=== PATIENT | female | born 1950 | race Caucasian/White ===

== ENCOUNTER 2019-07-05 13:21 | Observation (INO) | payer BC, MEDICARE ==
[~2019-07-05] VITALS: Ht 142.2 cm; Wt 41.5 kg
[2019-07-05] MEDS ORDERED: IV NORMAL SALINE 1000ML BAG 1,000 ML IV SCH (14:39)
[2019-07-05 14:58] LABS: BASO # 0.1 x10^3/uL (0.0-0.2); BASO % 1 % (0-3); EOS # 0.4 x10^3/uL (0.0-0.7); EOS % 6 % (0-3); HEMATOCRIT 39.8 % (36.0-47.0); HEMOGLOBIN 13.1 g/dL (12.0-15.5); LYMPH # 0.8 x10^3/uL (1.0-4.8); LYMPH % 12 % (24-48); MEAN CORPUSCULAR HEMOGLOBIN 29 pg (25-35); MEAN CORPUSCULAR HGB CONC 33 g/dL (31-37); MEAN CORPUSCULAR VOLUME 89 fL (79-100); MONO # 0.7 x10^3/uL (0.0-1.1); MONO % 11 % (0-9); NEUT # 4.5 x10^3/uL (1.8-7.7); NEUT % 70 % (31-73); PLATELET COUNT 423 x10^3/uL (140-400); RED BLOOD COUNT 4.48 x10^6/uL (3.50-5.40); RED CELL DISTRIBUTION WIDTH 14.9 % (11.5-14.5); WHITE BLOOD COUNT 6.4 x10^3/uL (4.0-11.0)
[2019-07-05 15:00] LABS: CALCIUM 9.1 mg/dL (8.5-10.1); CREATININE 1.1 mg/dL (0.6-1.0); GFR 49.5; POTASSIUM 4.5 mmol/L (3.5-5.1)
[2019-07-05 15:07] LABS: ALBUMIN 3.9 g/dL (3.4-5.0); ALBUMIN/GLOBULIN RATIO 1.3 (1.0-1.7); PROTHROMBIN TIME PATIENT 12.3 SEC (11.7-14.0); TOTAL BILIRUBIN 0.2 mg/dL (0.2-1.0); TOTAL PROTEIN 6.9 g/dL (6.4-8.2)
--- NOTE | 2019-07-05 15:10 | RAD ---
Single view chest dated 07/05/2019. Comparison made 02/11/2018. CLINICAL INDICATION: Confusion. Shortness of breath and weakness. FINDINGS: Single upright portable exam performed. Heart and mediastinal contours within normal limits. Lungs are hyperinflated but otherwise clear. No consolidation or pleural effusion. No pneumothorax. Nodular density within the anterior aspect of the right upper lobe is unchanged, likely granuloma. IMPRESSION: 1. No acute radiographic abnormality. Electronically signed by: Armin Ramos MD (07/05/2019 3:07 PM) [facility]
[2019-07-05] MEDS ORDERED: IOHEXOL 300 MG/ML 100ML VIAL. IV ONE (15:30)
[2019-07-05] MEDS ORDERED: CONTRAST GIVEN. MC PRN (15:30)
[2019-07-05 15:36] LABS: BILIRUBIN,URINE NEGATIVE (NEG); CLARITY,URINE CLEAR; COLOR,URINE YELLOW; NITRITE,URINE NEGATIVE (NEG); PH,URINE 7.5; PROTEIN,URINE 30 mg/dL (NEG-TRACE); UROBILINOGEN,URINE 0.2 mg/dL (0.2 mg/dL)
[2019-07-05 15:43] LABS: BARBITURATES NEG (NEG); BENZODIAZEPINES NEG (NEG); CANNABINOIDS POS (NEG); COCAINE NEG (NEG); METHADONE NEG (NEG); OPIATES NEG (NEG); PHENCYCLIDINE NEG (NEG)
[2019-07-05 15:45] LABS: AMPHETAMINE/METHAMPHETAMINE NEG (NEG)
[2019-07-05 15:49] LABS: HYALINE CASTS, URINE MANY /HPF
[2019-07-05 15:50] LABS: AMORPHOUS SEDIMENT,UR PRESENT /HPF; BACTERIA,URINE 0 /HPF (0-FEW); SQUAMOUS EPITHELIAL CELL,UR OCC /LPF
--- NOTE | 2019-07-05 15:53 | RAD ---
CT head without contrast dated 07/05/2019. No comparison available. CLINICAL INDICATION: Confusion. TECHNIQUE: Contiguous axial imaging the head was performed from skull base to vertex. No contrast administered. One or more of the following individualized dose reduction techniques were utilized for this examination: 1. Automated exposure control 2. Adjustment of the mA and/or kV according to patient size 3. Use of iterative reconstruction technique. FINDINGS: Ventricles and sulci are mildly prominent for age. No midline shift or mass effect. Brain parenchyma is of normal attenuation. No hemorrhage or extra-axial collection. Posterior fossa and brainstem unremarkable. Visualized paranasal sinuses and mastoid air cells are grossly clear. There is a tiny air-fluid level in left maxillary sinus. No apparent calvarial abnormality. IMPRESSION: 1. No evidence of acute intracranial abnormality. 2. Mild sinus disease. Electronically signed by: Armin Ramos MD (07/05/2019 3:50 PM) [facility]
--- NOTE | 2019-07-05 15:57 | RAD ---
CT abdomen pelvis with contrast dated 07/05/2019. No comparison available. CLINICAL INDICATION: Confusion and abdominal pain. TECHNIQUE: Contiguous axial imaging the abdomen and pelvis performed after the administration of 60 cc Omnipaque 300. One or more of the following individualized dose reduction techniques were utilized for this examination: 1. Automated exposure control 2. Adjustment of the mA and/or kV according to patient size 3. Use of iterative reconstruction technique. FINDINGS: Limited images of lung bases are clear. There is minimal linear scar or atelectasis in the left lower lobe and lingula. Heart size within normal limits. No pleural or pericardial effusion. Liver, spleen, pancreas, adrenal glands, gallbladder and kidneys are unremarkable. No hydronephrosis. Well-circumscribed low-density focus at the midpole left kidney, likely cyst. There are couple of small hypodensities spleen measure 7 mm in size each, nonspecific. Unopacified GI tract normal in caliber and contour. No focal bowel wall thickening. No inflammatory stranding in the mesentery. No ascites or lymphadenopathy. There are atherosclerotic calcifications of the abdominal aorta without evidence of aneurysm. The appendix is partially visualized and within normal limits in caliber. Images of pelvis show mildly distended urinary bladder. There is a hyperdense nodule of the uterus, consistent with fibroid measuring about 2.1 cm. No free fluid or pelvic lymphadenopathy. Bone windows show no acute findings. Multilevel spondylosis. IMPRESSION: 1. No acute abnormality of abdomen or pelvis. 2. Fibroid uterus. 3. There are couple of small hypodensities within the spleen, nonspecific. Electronically signed by: Armin Ramos MD (07/05/2019 3:54 PM) [facility]
[2019-07-05 16:10] LABS: BASE EXCESS COOX -1 mmol/L (-3-3); HCO3 COOX 24 mmol/L (21-28); METHEMOGLOBIN 0.2 % (0.0-1.9); OXYHEMOGLOBIN 88.1 %; PCO2 COOX 42 mmHg (35-46); PO2 COOX 57 mmHg (65-108); SAT O2 COOX 89 % (92-99)
--- NOTE | 2019-07-05 16:37 | PHYS DOC ---
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 Apparently she began shaking very badly more than she usually does and cut very weak, dizzy and lightheaded. Upon going into the room patient states that she is feeling a lot better and is feeling fine states that she is too weak to get up and walk. Patient's daughter states she is just not acting right and she is seeing a lot of of [id number] things such as "they can't see me, they can't hear me, and I'm ." Patient denies any pain. Review of Systems Review of Systems Constitutional: Denies fever or chills [] Eyes: Denies change in visual acuity, redness, or eye pain [] HENT: Denies nasal congestion or sore throat [] Respiratory: Denies cough or shortness of breath [] Cardiovascular: No additional information not addressed in HPI [] GI: Denies abdominal pain, nausea, vomiting, bloody stools or diarrhea [] : Denies dysuria or hematuria [] Musculoskeletal: Denies back pain or joint pain [] Integument: Denies rash or skin lesions [] Neurologic: Denies headache, focal weakness or sensory changes [] Endocrine: Denies polyuria or polydipsia [] All other systems were reviewed and found to be within normal limits, except as documented in this note. Current Medications Current Medications Current Medications Medications (Trade) Dose Ordered Sig/Aly Start Time Stop Time Status Last Admin Dose Admin Ciprofloxacin/ Dextrose 200 ml @ 200 mls/hr 1X ONCE 07/05/19 16:45 07/05/19 17:44 Info (CONTRAST GIVEN -- Rx MONITORING) 1 each PRN DAILY PRN 07/05/19 15:30 07/07/19 15:29 Iohexol (Omnipaque 300 Mg/ml) 60 ml 1X ONCE 07/05/19 15:30 07/05/19 15:31 DC 07/05/19 15:37 60 ML Sodium Chloride 1,000 ml @ 1,000 mls/hr Q1H 07/05/19 14:39 07/05/19 15:38 DC 07/05/19 15:17 1,000 MLS/HR Allergies Allergies Allergies Coded Allergies Type Severity Reaction Last Updated Verified Penicillins Allergy Intermediate Unknown 07/05/19 Yes Physical Exam Physical Exam Constitutional: Well developed, well nourished, no acute distress, non-toxic appearance. [] HENT: Normocephalic, atraumatic, bilateral external ears normal, oropharynx moist, no oral exudates, nose normal. [] Eyes: PERRLA, EOMI, conjunctiva normal, no discharge. [] Neck: Normal range of motion, no tenderness, supple, no stridor. [] Cardiovascular:Heart rate regular rhythm, no murmur [] Lungs & Thorax: Bilateral breath sounds clear to auscultation [] Abdomen: Bowel sounds normal, soft, no tenderness, no masses, no pulsatile masses. [] Skin: Warm, dry, no erythema, no rash. [] Back: No tenderness, no CVA tenderness. [] Extremities: No tenderness, no cyanosis, no clubbing, ROM intact, no edema. [] Neurologic: Alert and oriented X 3, normal motor function, normal sensory function, no focal deficits noted. [] Psychologic: Affect normal, judgement normal, mood normal. [] Current Patient Data Vital Signs Vital Signs Date Time Temp Pulse Resp B/P (MAP) Pulse Ox O2 Delivery O2 Flow Rate FiO2 07/05/19 15:41 96 16 98 07/05/19 13:25 97.7 143/65 (91) Room Air 97.7 Lab Values Laboratory Tests Test 07/05/19 13:40 07/05/19 13:50 07/05/19 14:39 07/05/19 15:24 Glucose (Fingerstick) 164 mg/dL (70-99) H White Blood Count 6.4 x10^3/uL (4.0-11.0) Red Blood Count 4.48 x10^6/uL (3.50-5.40) Hemoglobin 13.1 g/dL (12.0-15.5) Hematocrit 39.8 % (36.0-47.0) Mean Corpuscular Volume 89 fL (79-100) Mean Corpuscular Hemoglobin 29 pg (25-35) Mean Corpuscular Hemoglobin Concent 33 g/dL (31-37) Red Cell Distribution Width 14.9 % (11.5-14.5) H Platelet Count 423 x10^3/uL (140-400) H Neutrophils (%) (Auto) 70 % (31-73) Lymphocytes (%) (Auto) 12 % (24-48) L Monocytes (%) (Auto) 11 % (0-9) H Eosinophils (%) (Auto) 6 % (0-3) H Basophils (%) (Auto) 1 % (0-3) Neutrophils # (Auto) 4.5 x10^3/uL (1.8-7.7) Lymphocytes # (Auto) 0.8 x10^3/uL (1.0-4.8) L Monocytes # (Auto) 0.7 x10^3/uL (0.0-1.1) Eosinophils # (Auto) 0.4 x10^3/uL (0.0-0.7) Basophils # (Auto) 0.1 x10^3/uL (0.0-0.2) Prothrombin Time 12.3 SEC (11.7-14.0) Prothrombin Time INR 0.9 (0.8-1.1) Sodium Level 141 mmol/L (136-145) Potassium Level 4.5 mmol/L (3.5-5.1) Chloride Level 101 mmol/L (98-107) Carbon Dioxide Level 29 mmol/L (21-32) Anion Gap 11 (6-14) Blood Urea Nitrogen 19 mg/dL (7-20) Creatinine 1.1 mg/dL (0.6-1.0) H Estimated GFR (Cockcroft-Gault) 49.5 BUN/Creatinine Ratio 17 (6-20) Glucose Level 165 mg/dL (70-99) H Calcium Level 9.1 mg/dL (8.5-10.1) Total Bilirubin 0.2 mg/dL (0.2-1.0) Aspartate Amino Transferase (AST) 28 U/L (15-37) Alanine Aminotransferase (ALT) 30 U/L (14-59) Alkaline Phosphatase 137 U/L (46-116) H Troponin I Quantitative < 0.017 ng/mL (0.000-0.055) Total Protein 6.9 g/dL (6.4-8.2) Albumin 3.9 g/dL (3.4-5.0) Albumin/Globulin Ratio 1.3 (1.0-1.7) Lipase 228 U/L (73-393) Thyroid Stimulating Hormone (TSH) 1.681 uIU/mL (0.358-3.74) Ethyl Alcohol Level < 10 mg/dL (0-10) O2 Saturation 89 % (92-99) L Arterial Blood pH 7.37 (7.35-7.45) Arterial Blood pCO2 at Patient Temp 42 mmHg (35-46) Arterial Blood pO2 at Patient Temp 57 mmHg (65-108) L Arterial Blood HCO3 24 mmol/L (21-28) Arterial Blood Base Excess -1 mmol/L (-3-3) Oxyhemoglobin 88.1 % Methemoglobin 0.2 % (0.0-1.9) Carbon Monoxide, Quantitative 0.3 % (0.0-1.9) FiO2 21 Urine Opiates Screen Neg (NEG) Urine Methadone Screen Neg (NEG) Urine Barbiturates Neg (NEG) Urine Phencyclidine Screen Neg (NEG) Urine Amphetamine/Methamphetamine Neg (NEG) Urine Benzodiazepines Screen Neg (NEG) Urine Cocaine Screen Neg (NEG) Urine Cannabinoids Screen Pos (NEG) Urine Ethyl Alcohol Neg (NEG) Urine Collection Type Unknown Urine Color Yellow Urine Clarity Clear Urine pH 7.5 Urine Specific [place] 1.015 Urine Protein 30 mg/dL (NEG-TRACE) Urine Glucose (UA) Negative mg/dL (NEG) Urine Ketones (Stick) Negative mg/dL (NEG) Urine Blood Negative (NEG) Urine Nitrite Negative (NEG) Urine Bilirubin Negative (NEG) Urine Urobilinogen Dipstick 0.2 mg/dL (0.2 mg/dL) Urine Leukocyte Esterase Trace (NEG) Urine RBC 1-2 /HPF (0-2) Urine WBC 11-20 /HPF (0-4) Urine Squamous Epithelial Cells Occ /LPF Urine Transitional Epithelial Cells Few /LPF Urine Amorphous Sediment Present /HPF Urine Bacteria 0 /HPF (0-FEW) Urine Hyaline Casts Many /HPF Urine Mucus Mod /LPF Test 07/05/19 15:47 Lactic Acid Level 1.8 mmol/L (0.4-2.0) Ammonia < 10 mcmol/L (11-34) L Laboratory Tests 07/05/19 13:50 Laboratory Tests 07/05/19 13:50 EKG EKG SINUS RYTHM WITH INCOMPLETE RIGHT BBB AND NO STEMI[] Interpretation Time: [address] Herrera Radiology/Procedures Radiology/Procedures [] Impressions: [facility] [address] [place] [address] IMAGING REPORT Signed PATIENT: RAY AMAYA ACCOUNT: [id number] : 1950 LOCATION: ER AGE: 69 SEX: F EXAM STATUS: PRE ER ORD. PHYSICIAN: JULIANO MORTENSEN APRN REASON: confusion, soa, WEAKNESS PROCEDURE: PORTABLE CHEST 1V Single view chest dated 07/05/2019. Comparison made 02/11/2018. CLINICAL INDICATION: Confusion. Shortness of breath and weakness. FINDINGS: Single upright portable exam performed. Heart and mediastinal contours within normal limits. Lungs are hyperinflated but otherwise clear. No consolidation or pleural effusion. No pneumothorax. Nodular density within the anterior aspect of the right upper lobe is unchanged, likely granuloma. IMPRESSION: 1. No acute radiographic abnormality. Electronically signed by: Armin Ramos MD (07/05/2019 3:07 PM) [facility] DICTATED and SIGNED BY: ARMIN RAMOS MD DATE: 07/05/19 1507 [facility] [address] [place], [place] [id number] IMAGING REPORT Signed PATIENT: RAY AMAYA ACCOUNT: [id number] : 1950 LOCATION: ER AGE: 69 SEX: F EXAM STATUS: REG ER ORD. PHYSICIAN: JULIANO MORTENSEN APRN REASON: confusion PROCEDURE: CT HEAD WO CONTRAST CT head without contrast dated 07/05/2019. No comparison available. CLINICAL INDICATION: Confusion. TECHNIQUE: Contiguous axial imaging the head was performed from skull base to vertex. No contrast administered. One or more of the following individualized dose reduction techniques were utilized for this examination: 1. Automated exposure control 2. Adjustment of the mA and/or kV according to patient size 3. Use of iterative reconstruction technique. FINDINGS: Ventricles and sulci are mildly prominent for age. No midline shift or mass effect. Brain parenchyma is of normal attenuation. No hemorrhage or extra-axial collection. Posterior fossa and brainstem unremarkable. Visualized paranasal sinuses and mastoid air cells are grossly clear. There is a tiny air-fluid level in left maxillary sinus. No apparent calvarial abnormality. IMPRESSION: 1. No evidence of acute intracranial abnormality. 2. Mild sinus disease. Electronically signed by: Armin Ramos MD (07/05/2019 3:50 PM) [facility] DICTATED and SIGNED BY: ARMIN RAMOS MD DATE: 07/05/19 1550 [facility] [address] [place] [address] IMAGING REPORT Signed PATIENT: RAY AMAYA ACCOUNT: [id number] : 1950 LOCATION: ER AGE: 69 SEX: F EXAM STATUS: REG ER ORD. PHYSICIAN: JULIANO MORTENSEN APRN REASON: confusion, ABDOMINAL PAIN PROCEDURE: CT ABD PELV W/ IV CONTRST ONLY CT abdomen pelvis with contrast dated 07/05/2019. No comparison available. CLINICAL INDICATION: Confusion and abdominal pain. TECHNIQUE: Contiguous axial imaging the abdomen and pelvis performed after the administration of 60 cc Omnipaque 300. One or more of the following individualized dose reduction techniques were utilized for this examination: 1. Automated exposure control 2. Adjustment of the mA and/or kV according to patient size 3. Use of iterative reconstruction technique. FINDINGS: Limited images of lung bases are clear. There is minimal linear scar or atelectasis in the left lower lobe and lingula. Heart size within normal limits. No pleural or pericardial effusion. Liver, spleen, pancreas, adrenal glands, gallbladder and kidneys are unremarkable. No hydronephrosis. Well-circumscribed low-density focus at the midpole left kidney, likely cyst. There are couple of small hypodensities spleen measure 7 mm in size each, nonspecific. Unopacified GI tract normal in caliber and contour. No focal bowel wall thickening. No inflammatory stranding in the mesentery. No ascites or lymphadenopathy. There are atherosclerotic calcifications of the abdominal aorta without evidence of aneurysm. The appendix is partially visualized and within normal limits in caliber. Images of pelvis show mildly distended urinary bladder. There is a hyperdense nodule of the uterus, consistent with fibroid measuring about 2.1 cm. No free fluid or pelvic lymphadenopathy. Bone windows show no acute findings. Multilevel spondylosis. IMPRESSION: 1. No acute abnormality of abdomen or pelvis. 2. Fibroid uterus. 3. There are couple of small hypodensities within the spleen, nonspecific. Electronically signed by: Armin Ramos MD (07/05/2019 3:54 PM) [facility] DICTATED and SIGNED BY: ARMIN RAMOS MD DATE: 07/05/19 1554 Course & Med Decision Making Course & Med Decision Making Is a very poor historian seems to be answering my questions appropriately but daughter will that the patient's nursing on following up falling and I'm leaning. The nurse states that she was sitting straight up and she was not falling nor was she leaning. NIH scale is negative. She is alert and oriented 4. Answers all my questions appropriately and follows all commands appropriately. Nurse states that she gave the patient 1 mL of water to drink and patient began coughing. Patient states for the last month or 2 she has been having that issue especially getting her pills down. She states that she has told her GI doctor about this in they found polyps in her esophagus in her colon. Daughter states that she thought they only did a colonoscopy and not an endoscopy. It is unclear at this time which was done. Patient's primary care is at [facility]. Patient and daughter also reports the patient went from 140 pounds to 90 pounds in 2 months. She states that she does not think her mother's been eating enough. Patient only had a cookie to eat today. Patient is a smoker, has emphysema, asthma, hypothyroidism, states drinks a beer every night, marijuana use, high cholesterol, hypertension, GERD. Lungs are clear to auscultation all lobes. Her vital signs are within normal limits. EKG shows sinus rhythm and incomplete right BBB. Patient speaks in full clear sentences. Skin pink warm and dry. Abdomen is soft and nontender. Patient denies fever, cough, shortness of air, chest pain, headache, dizziness at this time, numbness or tingling, visual changes. She denies falling or hitting her head recently. I have spoken to Dr Gill for admission. Catrachita Disclaimer Dragon Disclaimer This electronic medical record was generated, in whole or in part, using a voice recognition dictation system. Departure Departure Impression: Primary Impression: AMS (altered mental status) Additional Impression: Dysphagia Disposition: 09 ADMITTED INPATIENT Admitting Physician: REE Condition: STABLE Referrals: SHAI MAURICE (PCP) Problem Qualifiers Primary Impression: AMS (altered mental status) Altered mental status type: unspecified Qualified Codes: R41.82 - Altered mental status, unspecified Additional Impression: Dysphagia Dysphagia type: unspecified Qualified Codes: R13.10 - Dysphagia, unspecified JULIANO MORTENSEN LEATHER TANNER Jul 05, 2019 16:37
[2019-07-05] MEDS ORDERED: CIPROFLOXACIN 400MG PREMIX 200 ML IV ONE (16:45)
[2019-07-05] MEDS ORDERED: LORazepam 0.5 MG TABLET PO PRN (17:00)
[2019-07-05] MEDS ORDERED: IPRATRPIUM/ALBUTEROL 0.5/2.5MG 3 ML NEBU. NEB SCH (17:00)
[2019-07-05] MEDS ORDERED: DOCUSATE SODIUM 100 MG CAPSULE. PO PRN (17:00)
[2019-07-05] MEDS ORDERED: ONDANSETRON PF 4 MG/2 ML VIAL. IV PRN (17:00)
[2019-07-05] MEDS ORDERED: ALBUTEROL SULFATE 2.5 MG/3 ML NEBU. NEB PRN (17:00)
[2019-07-05] MEDS ORDERED: ZOLPIDEM 5 MG TABLET. PO PRN (17:00)
[2019-07-05] MEDS ORDERED: ACETAMINOPHEN 325 MG TABLET. PO PRN (17:00)
[2019-07-05] MEDS ORDERED: guaiFENesin ORAL 200 MG/10 ML LIQUID. PO PRN (17:00)
[2019-07-05 19:00] VITALS: BP 120/70
[2019-07-05] MEDS: IV NORMAL SALINE 1000ML BAG 1,000 ML IV SCH (20:11)
[2019-07-05] MEDS ORDERED: AMLO5TAB10 PO (20:32)
[2019-07-05] MEDS ORDERED: ALEN70TA6 PO (20:32)
[2019-07-05] MEDS ORDERED: PANT40TA77 PO (20:32)
[2019-07-05] MEDS ORDERED: IPRA4AER IH (20:32)
[2019-07-05] MEDS ORDERED: ATOR40TA59 PO (20:32)
[2019-07-05] MEDS ORDERED: allergy PO (20:32)
[2019-07-05] MEDS ORDERED: BUPR300T92 PO (20:32)
[2019-07-05] MEDS ORDERED: LEVO75TA5 PO (20:32)
[2019-07-05] MEDS ORDERED: ASPI-630 PO (20:32)
[2019-07-05] MEDS: IPRATRPIUM/ALBUTEROL 0.5/2.5MG 3 ML NEBU. NEB SCH (20:55)
[2019-07-05] MEDS ORDERED: ENOXAPARIN 40 MG/0.4 ML SYRINGE. SQ SCH (21:00)
[2019-07-05 23:00] VITALS: BP 114/52
--- NOTE | 2019-07-05 23:07 | PDOC1 ---
History and Physical Date of Admission Date of Admission 07/05/2019 Identification/Chief Complaint Chief Complaint I was talking crazy Source Source: Chart review, Patient History of Present Illness History of Present Illness Patient is a 69 year old female with multiple comorbidities that include hypertension hypothyroidism and dyslipidemia GERD and COPD. 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 She was brought to the emergency department via ambulance for further evaluation and treatment. The patient did not percent neurological deficits and age score was 0 she did not percent slurred speech no facial drooping no hemiparesis no hemiplegia was reported either. The patient denies any recent changes to her medications. She did acknowledge the fact that she was talking quite strangely at her workplace does not give history of seizure-like activity or aura-type of symptoms she denies headaches no blurred vision. She has not started [id number] medications either no recent sick contacts no flulike symptoms no neck stiffness no fever chills diaphoresis was reported either. She quit smoking apparently 15 years ago after a [id number] history of smoking. Family reports a significant drop weight over the last few months. The patient certainly does look him she aided and when asked about her oral intake she reports that sometimes just drinking 1 cup of coffee a day. Is being admitted f or further evaluation and treatment. There was a report also by the ER physician and confirmed by the patient that she has had trouble swallowing as a reason she has been having less oral intake. No black tarry stools nor hematochezia has been reported no abdominal pain no lymph nodes were noted. Plan of care explained in detail all concerns address to the best of my abilities Past Medical History Cardiovascular: HTN, Hyperlipidemia Pulmonary: COPD Endocrine: Hypothyroidism Current Problem List Problem List Problems Medical Problems: (1) AMS (altered mental status) Status: Acute (2) Dysphagia Status: Acute Current Medications Current Medications Current Medications Medications (Trade) Dose Ordered Sig/Aly Start Time Stop Time Status Last Admin Dose Admin Acetaminophen (Tylenol) 650 mg PRN Q4HRS PRN 07/05/19 17:00 Albuterol Sulfate (Ventolin Neb Soln) 2.5 mg PRN Q4HRS PRN 07/05/19 17:00 Albuterol/ Ipratropium (Duoneb) 3 ml RTQID 07/05/19 20:00 07/05/19 20:55 3 ML Ciprofloxacin/ Dextrose 200 ml @ 200 mls/hr 1X ONCE 07/05/19 16:45 07/05/19 17:44 DC 07/05/19 17:27 200 MLS/HR Docusate Sodium (Colace) 100 mg PRN BID PRN 07/05/19 17:00 Enoxaparin Sodium (Lovenox 40mg Syringe) 40 mg QHS 07/05/19 21:00 Guaifenesin (Robitussin) 200 mg PRN Q4HRS PRN 07/05/19 17:00 Info (CONTRAST GIVEN -- Rx MONITORING) 1 each PRN DAILY PRN 07/05/19 15:30 07/07/19 15:29 Iohexol (Omnipaque 300 Mg/ml) 60 ml 1X ONCE 07/05/19 15:30 07/05/19 15:31 DC 07/05/19 15:37 60 ML Levothyroxine Sodium (Synthroid) 75 mcg DAILY06 07/06/19 06:00 Lorazepam (Ativan) 0.5 mg PRN Q4HRS PRN 07/05/19 17:00 Ondansetron HCl (Zofran) 4 mg PRN Q4HRS PRN 07/05/19 17:00 Sodium Chloride 1,000 ml @ 100 mls/hr Q10H 07/05/19 16:55 07/05/19 20:11 100 MLS/HR Zolpidem Tartrate (Ambien) 5 mg PRN QHS PRN 07/05/19 17:00 Allergies Allergies Allergies Coded Allergies Type Severity Reaction Last Updated Verified Penicillins Allergy Intermediate Unknown 07/05/19 Yes ROS Review of System CONSTITUTIONAL: No fever or chills EYES: No recent changes SKIN: No rash or itching CARDIOVASCULAR: No chest pain, syncope, palpitations, or edema RESPIRATORY: No SOB or cough GASTROINTESTINAL: No nausea, vomiting or abdominal pain NEUROLOGICAL: No headaches or weakness ENDOCRINE: No cold or heat intolerance GENITOURINARY: No urgency or frequency of urination MUSCULOSKELETAL: No back pain or joint pain LYMPHATICS: No enlarged lymph nodes PSYCHIATRIC: No anxiety or depression Physical Exam Physical Exam Gen.: Cachectic in no apparent distress Head: Normal shape atraumatic Eyes: Pupils equal reactive to light and accommodation, normal conjunctivae and lids Ears: Normal shape Nose: Normal shape no trauma Mouth: No exudates of the back of throat no thrush no lesions Neck: Supple no JVD no carotid bruit or lymphadenopathy no thyromegaly Chest: Lungs clear to auscultation with good inspiratory effort no crackles rales or rhonchi Cardiovascular: S1-S2 regular rhythm no murmurs gallops or rubs Abdomen: Bowel sounds present soft nontender no hepatosplenomegaly appreciated sign Extremities: No clubbing no cyanosis no edema peripheral pulses palpated bilaterally Neurological: Alert awake oriented in person time place and situation, cranial nerves II through XII intact, no motor or sensory deficits appreciated Psych: Appropriate mood, cooperative Vitals Vitals Vital Signs Date Time Temp Pulse Resp B/P (MAP) Pulse Ox O2 Delivery O2 Flow Rate FiO2 07/05/19 20:55 98 Nasal Cannula 2.0 07/05/19 19:00 98.0 96 18 120/70 (87) 98.0 Labs Labs Laboratory Tests Test 07/05/19 13:40 07/05/19 13:50 07/05/19 14:39 07/05/19 15:24 Glucose (Fingerstick) 164 mg/dL (70-99) White Blood Count 6.4 x10^3/uL (4.0-11.0) Red Blood Count 4.48 x10^6/uL (3.50-5.40) Hemoglobin 13.1 g/dL (12.0-15.5) Hematocrit 39.8 % (36.0-47.0) Mean Corpuscular Volume 89 fL (79-100) Mean Corpuscular Hemoglobin 29 pg (25-35) Mean Corpuscular Hemoglobin Concent 33 g/dL (31-37) Red Cell Distribution Width 14.9 % (11.5-14.5) Platelet Count 423 x10^3/uL (140-400) Neutrophils (%) (Auto) 70 % (31-73) Lymphocytes (%) (Auto) 12 % (24-48) Monocytes (%) (Auto) 11 % (0-9) Eosinophils (%) (Auto) 6 % (0-3) Basophils (%) (Auto) 1 % (0-3) Neutrophils # (Auto) 4.5 x10^3/uL (1.8-7.7) Lymphocytes # (Auto) 0.8 x10^3/uL (1.0-4.8) Monocytes # (Auto) 0.7 x10^3/uL (0.0-1.1) Eosinophils # (Auto) 0.4 x10^3/uL (0.0-0.7) Basophils # (Auto) 0.1 x10^3/uL (0.0-0.2) Prothrombin Time 12.3 SEC (11.7-14.0) Prothromb Time International Ratio 0.9 (0.8-1.1) Sodium Level 141 mmol/L (136-145) Potassium Level 4.5 mmol/L (3.5-5.1) Chloride Level 101 mmol/L (98-107) Carbon Dioxide Level 29 mmol/L (21-32) Anion Gap 11 (6-14) Blood Urea Nitrogen 19 mg/dL (7-20) Creatinine 1.1 mg/dL (0.6-1.0) Estimated GFR (Cockcroft-Gault) 49.5 BUN/Creatinine Ratio 17 (6-20) Glucose Level 165 mg/dL (70-99) Calcium Level 9.1 mg/dL (8.5-10.1) Total Bilirubin 0.2 mg/dL (0.2-1.0) Aspartate Amino Transf (AST/SGOT) 28 U/L (15-37) Alanine Aminotransferase (ALT/SGPT) 30 U/L (14-59) Alkaline Phosphatase 137 U/L (46-116) Troponin I Quantitative < 0.017 ng/mL (0.000-0.055) Total Protein 6.9 g/dL (6.4-8.2) Albumin 3.9 g/dL (3.4-5.0) Albumin/Globulin Ratio 1.3 (1.0-1.7) Lipase 228 U/L (73-393) Thyroid Stimulating Hormone (TSH) 1.681 uIU/mL (0.358-3.74) Ethyl Alcohol Level < 10 mg/dL (0-10) O2 Saturation 89 % (92-99) Arterial Blood pH 7.37 (7.35-7.45) Arterial Blood pCO2 at Patient Temp 42 mmHg (35-46) Arterial Blood pO2 at Patient Temp 57 mmHg (65-108) Arterial Blood HCO3 24 mmol/L (21-28) Arterial Blood Base Excess -1 mmol/L (-3-3) Oxyhemoglobin 88.1 % Methemoglobin 0.2 % (0.0-1.9) Carbon Monoxide, Quantitative 0.3 % (0.0-1.9) FiO2 21 Urine Opiates Screen Neg (NEG) Urine Methadone Screen Neg (NEG) Urine Barbiturates Neg (NEG) Urine Phencyclidine Screen Neg (NEG) Urine Amphetamine/Methamphetamine Neg (NEG) Urine Benzodiazepines Screen Neg (NEG) Urine Cocaine Screen Neg (NEG) Urine Cannabinoids Screen Pos (NEG) Urine Ethyl Alcohol Neg (NEG) Urine Collection Type Unknown Urine Color Yellow Urine Clarity Clear Urine pH 7.5 Urine Specific [place] 1.015 Urine Protein 30 mg/dL (NEG-TRACE) Urine Glucose (UA) Negative mg/dL (NEG) Urine Ketones (Stick) Negative mg/dL (NEG) Urine Blood Negative (NEG) Urine Nitrite Negative (NEG) Urine Bilirubin Negative (NEG) Urine Urobilinogen Dipstick 0.2 mg/dL (0.2 mg/dL) Urine Leukocyte Esterase Trace (NEG) Urine RBC 1-2 /HPF (0-2) Urine WBC 11-20 /HPF (0-4) Urine Squamous Epithelial Cells Occ /LPF Urine Transitional Epithelial Cells Few /LPF Urine Amorphous Sediment Present /HPF Urine Bacteria 0 /HPF (0-FEW) Urine Hyaline Casts Many /HPF Urine Mucus Mod /LPF Test 07/05/19 15:47 Lactic Acid Level 1.8 mmol/L (0.4-2.0) Ammonia < 10 mcmol/L (11-34) Laboratory Tests Test 07/05/19 13:40 07/05/19 13:50 07/05/19 14:39 07/05/19 15:24 Glucose (Fingerstick) 164 mg/dL (70-99) White Blood Count 6.4 x10^3/uL (4.0-11.0) Red Blood Count 4.48 x10^6/uL (3.50-5.40) Hemoglobin 13.1 g/dL (12.0-15.5) Hematocrit 39.8 % (36.0-47.0) Mean Corpuscular Volume 89 fL (79-100) Mean Corpuscular Hemoglobin 29 pg (25-35) Mean Corpuscular Hemoglobin Concent 33 g/dL (31-37) Red Cell Distribution Width 14.9 % (11.5-14.5) Platelet Count 423 x10^3/uL (140-400) Neutrophils (%) (Auto) 70 % (31-73) Lymphocytes (%) (Auto) 12 % (24-48) Monocytes (%) (Auto) 11 % (0-9) Eosinophils (%) (Auto) 6 % (0-3) Basophils (%) (Auto) 1 % (0-3) Neutrophils # (Auto) 4.5 x10^3/uL (1.8-7.7) Lymphocytes # (Auto) 0.8 x10^3/uL (1.0-4.8) Monocytes # (Auto) 0.7 x10^3/uL (0.0-1.1) Eosinophils # (Auto) 0.4 x10^3/uL (0.0-0.7) Basophils # (Auto) 0.1 x10^3/uL (0.0-0.2) Prothrombin Time 12.3 SEC (11.7-14.0) Prothromb Time International Ratio 0.9 (0.8-1.1) Sodium Level 141 mmol/L (136-145) Potassium Level 4.5 mmol/L (3.5-5.1) Chloride Level 101 mmol/L (98-107) Carbon Dioxide Level 29 mmol/L (21-32) Anion Gap 11 (6-14) Blood Urea Nitrogen 19 mg/dL (7-20) Creatinine 1.1 mg/dL (0.6-1.0) Estimated GFR (Cockcroft-Gault) 49.5 BUN/Creatinine Ratio 17 (6-20) Glucose Level 165 mg/dL (70-99) Calcium Level 9.1 mg/dL (8.5-10.1) Total Bilirubin 0.2 mg/dL (0.2-1.0) Aspartate Amino Transf (AST/SGOT) 28 U/L (15-37) Alanine Aminotransferase (ALT/SGPT) 30 U/L (14-59) Alkaline Phosphatase 137 U/L (46-116) Troponin I Quantitative < 0.017 ng/mL (0.000-0.055) Total Protein 6.9 g/dL (6.4-8.2) Albumin 3.9 g/dL (3.4-5.0) Albumin/Globulin Ratio 1.3 (1.0-1.7) Lipase 228 U/L (73-393) Thyroid Stimulating Hormone (TSH) 1.681 uIU/mL (0.358-3.74) Ethyl Alcohol Level < 10 mg/dL (0-10) O2 Saturation 89 % (92-99) Arterial Blood pH 7.37 (7.35-7.45) Arterial Blood pCO2 at Patient Temp 42 mmHg (35-46) Arterial Blood pO2 at Patient Temp 57 mmHg (65-108) Arterial Blood HCO3 24 mmol/L (21-28) Arterial Blood Base Excess -1 mmol/L (-3-3) Oxyhemoglobin 88.1 % Methemoglobin 0.2 % (0.0-1.9) Carbon Monoxide, Quantitative 0.3 % (0.0-1.9) FiO2 21 Urine Opiates Screen Neg (NEG) Urine Methadone Screen Neg (NEG) Urine Barbiturates Neg (NEG) Urine Phencyclidine Screen Neg (NEG) Urine Amphetamine/Methamphetamine Neg (NEG) Urine Benzodiazepines Screen Neg (NEG) Urine Cocaine Screen Neg (NEG) Urine Cannabinoids Screen Pos (NEG) Urine Ethyl Alcohol Neg (NEG) Urine Collection Type Unknown Urine Color Yellow Urine Clarity Clear Urine pH 7.5 Urine Specific [place] 1.015 Urine Protein 30 mg/dL (NEG-TRACE) Urine Glucose (UA) Negative mg/dL (NEG) Urine Ketones (Stick) Negative mg/dL (NEG) Urine Blood Negative (NEG) Urine Nitrite Negative (NEG) Urine Bilirubin Negative (NEG) Urine Urobilinogen Dipstick 0.2 mg/dL (0.2 mg/dL) Urine Leukocyte Esterase Trace (NEG) Urine RBC 1-2 /HPF (0-2) Urine WBC 11-20 /HPF (0-4) Urine Squamous Epithelial Cells Occ /LPF Urine Transitional Epithelial Cells Few /LPF Urine Amorphous Sediment Present /HPF Urine Bacteria 0 /HPF (0-FEW) Urine Hyaline Casts Many /HPF Urine Mucus Mod /LPF Test 07/05/19 15:47 Lactic Acid Level 1.8 mmol/L (0.4-2.0) Ammonia < 10 mcmol/L (11-34) VTE Prophylaxis Ordered VTE Prophylaxis Devices: No VTE Pharmacological Prophylaxi: Yes Assessment/Plan Assessment/Plan Encephalopathy etiology undetermined. this has resolved CKD stage 3 Severe malnutrition seems to be protein calorie malnutrition COPD secondary to 50 pack year history of smoking dysphagia? Recent unintended weight loss greater than 20 pounds Hypothyroidism Dyslipidemia Essential hypertension Plan: will check thyroid function tests check b12 level resume home medications once available for review consult GI for dysphagia repeat labs in the am DVT prophylaxis: Lovenox renal adjusted Further recommendations based on clinical course, patien not having neurological deficits. she may be discharged in the am if no furher intervention deemed necessary will wait for recommendations from excellence consultant she may need placement.yovanny Will order PT and OT YUNIER BURDICK MD Jul 05, 2019 23:07
[2019-07-06 03:00] VITALS: BP 128/60
[2019-07-06 05:19] LABS: BASO % 1 % (0-3); EOS # 0.5 x10^3/uL (0.0-0.7); EOS % 10 % (0-3); HEMATOCRIT 35.9 % (36.0-47.0); HEMOGLOBIN 11.8 g/dL (12.0-15.5); LYMPH # 0.7 x10^3/uL (1.0-4.8); LYMPH % 14 % (24-48); MEAN CORPUSCULAR HEMOGLOBIN 29 pg (25-35); MEAN CORPUSCULAR HGB CONC 33 g/dL (31-37); MEAN CORPUSCULAR VOLUME 89 fL (79-100); MONO # 0.5 x10^3/uL (0.0-1.1); MONO % 11 % (0-9); NEUT # 3.2 x10^3/uL (1.8-7.7); NEUT % 65 % (31-73); PLATELET COUNT 333 x10^3/uL (140-400); RED BLOOD COUNT 4.05 x10^6/uL (3.50-5.40); RED CELL DISTRIBUTION WIDTH 15.2 % (11.5-14.5); WHITE BLOOD COUNT 4.9 x10^3/uL (4.0-11.0)
[2019-07-06 05:47] LABS: CALCIUM 8.2 mg/dL (8.5-10.1); CREATININE 0.6 mg/dL (0.6-1.0); GFR 99.7; POTASSIUM 3.7 mmol/L (3.5-5.1)
[2019-07-06] MEDS ORDERED: LEVOTHYROXINE 75 MCG TABLET PO SCH (06:00)
[2019-07-06] MEDS: IV NORMAL SALINE 1000ML BAG 1,000 ML IV SCH (06:23)
[2019-07-06 07:00] VITALS: BP 115/56
[2019-07-06] MEDS: IPRATRPIUM/ALBUTEROL 0.5/2.5MG 3 ML NEBU. NEB SCH ×2 (07:34→11:34)
--- NOTE | 2019-07-06 09:09 | EKG ---
[facility] [address] [place] [address] Test Date: 2019-07-05 Test Time: 13:58:51 Pat Name: RAY AMAYA Department: Room: Gender: F [employer] Officer: : 1950 Requested By: JULIANO MORTENSEN Order Number: [id number] Reading MD: Measurements Intervals [place] Rate: 91 P: 90 MA: 140 QRS: 98 QRSD: 102 T: 46 QT: 392 QTc: 483 Interpretive Statements SINUS RHYTHM RIGHTWARD AXIS INCOMPLETE RIGHT BUNDLE BRANCH BLOCK QRS(T) CONTOUR ABNORMALITY CANNOT RULE OUT HIGH LATERAL INFARCT T ABNORMALITY IN ANTEROSEPTAL LEADS ABNORMAL ECG No previous ECG available for comparison
[2019-07-06] MEDS ORDERED: ASPIRIN CHEWABLE 81 MG TABLET. PO SCH (10:00)
[2019-07-06] MEDS ORDERED: buPROPion XL 150 MG TAB.ER.24H. PO SCH (10:00)
[2019-07-06] MEDS ORDERED: amLODIPine BESYLATE 5 MG TABLET PO SCH (10:00)
[2019-07-06 11:00] VITALS: BP 127/57
--- NOTE | 2019-07-06 11:14 | PDOC3 ---
Discharge Summary Visit Information Date of Admission: Jul 05, 2019 Date of Discharge: Jul 06, 2019 Admitting Diagnosis Comment: Encephalopathy etiology undetermined. this has resolved - NEG WORK UP (OBS STAY) CKD stage 3 Severe malnutrition seems to be protein calorie malnutrition COPD secondary to 50 pack year history of smoking Final Diagnosis Problems Medical Problems: (1) AMS (altered mental status) Status: Acute (2) Dysphagia Status: Acute Brief Hospital Course Allergies Allergies Coded Allergies Type Severity Reaction Last Updated Verified Penicillins Allergy Intermediate Unknown 07/05/19 Yes Vital Signs Vital Signs Date Time Temp Pulse Resp B/P (MAP) Pulse Ox O2 Delivery O2 Flow Rate FiO2 07/06/19 10:30 81 115/56 07/06/19 07:35 99 Nasal Cannula 2.0 07/06/19 07:00 98.2 18 98.2 Lab Results Laboratory Tests Test 07/05/19 13:40 07/05/19 13:50 07/05/19 14:39 07/05/19 15:24 Glucose (Fingerstick) 164 mg/dL (70-99) White Blood Count 6.4 x10^3/uL (4.0-11.0) Red Blood Count 4.48 x10^6/uL (3.50-5.40) Hemoglobin 13.1 g/dL (12.0-15.5) Hematocrit 39.8 % (36.0-47.0) Mean Corpuscular Volume 89 fL (79-100) Mean Corpuscular Hemoglobin 29 pg (25-35) Mean Corpuscular Hemoglobin Concent 33 g/dL (31-37) Red Cell Distribution Width 14.9 % (11.5-14.5) Platelet Count 423 x10^3/uL (140-400) Neutrophils (%) (Auto) 70 % (31-73) Lymphocytes (%) (Auto) 12 % (24-48) Monocytes (%) (Auto) 11 % (0-9) Eosinophils (%) (Auto) 6 % (0-3) Basophils (%) (Auto) 1 % (0-3) Neutrophils # (Auto) 4.5 x10^3/uL (1.8-7.7) Lymphocytes # (Auto) 0.8 x10^3/uL (1.0-4.8) Monocytes # (Auto) 0.7 x10^3/uL (0.0-1.1) Eosinophils # (Auto) 0.4 x10^3/uL (0.0-0.7) Basophils # (Auto) 0.1 x10^3/uL (0.0-0.2) Prothrombin Time 12.3 SEC (11.7-14.0) Prothromb Time International Ratio 0.9 (0.8-1.1) Sodium Level 141 mmol/L (136-145) Potassium Level 4.5 mmol/L (3.5-5.1) Chloride Level 101 mmol/L (98-107) Carbon Dioxide Level 29 mmol/L (21-32) Anion Gap 11 (6-14) Blood Urea Nitrogen 19 mg/dL (7-20) Creatinine 1.1 mg/dL (0.6-1.0) Estimated GFR (Cockcroft-Gault) 49.5 BUN/Creatinine Ratio 17 (6-20) Glucose Level 165 mg/dL (70-99) Calcium Level 9.1 mg/dL (8.5-10.1) Total Bilirubin 0.2 mg/dL (0.2-1.0) Aspartate Amino Transf (AST/SGOT) 28 U/L (15-37) Alanine Aminotransferase (ALT/SGPT) 30 U/L (14-59) Alkaline Phosphatase 137 U/L (46-116) Troponin I Quantitative < 0.017 ng/mL (0.000-0.055) Total Protein 6.9 g/dL (6.4-8.2) Albumin 3.9 g/dL (3.4-5.0) Albumin/Globulin Ratio 1.3 (1.0-1.7) Lipase 228 U/L (73-393) Thyroid Stimulating Hormone (TSH) 1.681 uIU/mL (0.358-3.74) Ethyl Alcohol Level < 10 mg/dL (0-10) O2 Saturation 89 % (92-99) Arterial Blood pH 7.37 (7.35-7.45) Arterial Blood pCO2 at Patient Temp 42 mmHg (35-46) Arterial Blood pO2 at Patient Temp 57 mmHg (65-108) Arterial Blood HCO3 24 mmol/L (21-28) Arterial Blood Base Excess -1 mmol/L (-3-3) Oxyhemoglobin 88.1 % Methemoglobin 0.2 % (0.0-1.9) Carbon Monoxide, Quantitative 0.3 % (0.0-1.9) FiO2 21 Urine Opiates Screen Neg (NEG) Urine Methadone Screen Neg (NEG) Urine Barbiturates Neg (NEG) Urine Phencyclidine Screen Neg (NEG) Urine Amphetamine/Methamphetamine Neg (NEG) Urine Benzodiazepines Screen Neg (NEG) Urine Cocaine Screen Neg (NEG) Urine Cannabinoids Screen Pos (NEG) Urine Ethyl Alcohol Neg (NEG) Urine Collection Type Unknown Urine Color Yellow Urine Clarity Clear Urine pH 7.5 [address] [place] 1.015 Urine Protein 30 mg/dL (NEG-TRACE) Urine Glucose (UA) Negative mg/dL (NEG) Urine Ketones (Stick) Negative mg/dL (NEG) Urine Blood Negative (NEG) Urine Nitrite Negative (NEG) Urine Bilirubin Negative (NEG) Urine Urobilinogen Dipstick 0.2 mg/dL (0.2 mg/dL) Urine Leukocyte Esterase Trace (NEG) Urine RBC 1-2 /HPF (0-2) Urine WBC 11-20 /HPF (0-4) Urine Squamous Epithelial Cells Occ /LPF Urine Transitional Epithelial Cells Few /LPF Urine Amorphous Sediment Present /HPF Urine Bacteria 0 /HPF (0-FEW) Urine Hyaline Casts Many /HPF Urine Mucus Mod /LPF Test 07/05/19 15:47 07/06/19 04:00 Lactic Acid Level 1.8 mmol/L (0.4-2.0) Ammonia < 10 mcmol/L (11-34) White Blood Count 4.9 x10^3/uL (4.0-11.0) Red Blood Count 4.05 x10^6/uL (3.50-5.40) Hemoglobin 11.8 g/dL (12.0-15.5) Hematocrit 35.9 % (36.0-47.0) Mean Corpuscular Volume 89 fL (79-100) Mean Corpuscular Hemoglobin 29 pg (25-35) Mean Corpuscular Hemoglobin Concent 33 g/dL (31-37) Red Cell Distribution Width 15.2 % (11.5-14.5) Platelet Count 333 x10^3/uL (140-400) Neutrophils (%) (Auto) 65 % (31-73) Lymphocytes (%) (Auto) 14 % (24-48) Monocytes (%) (Auto) 11 % (0-9) Eosinophils (%) (Auto) 10 % (0-3) Basophils (%) (Auto) 1 % (0-3) Neutrophils # (Auto) 3.2 x10^3/uL (1.8-7.7) Lymphocytes # (Auto) 0.7 x10^3/uL (1.0-4.8) Monocytes # (Auto) 0.5 x10^3/uL (0.0-1.1) Eosinophils # (Auto) 0.5 x10^3/uL (0.0-0.7) Basophils # (Auto) 0.0 x10^3/uL (0.0-0.2) Sodium Level 143 mmol/L (136-145) Potassium Level 3.7 mmol/L (3.5-5.1) Chloride Level 106 mmol/L (98-107) Carbon Dioxide Level 28 mmol/L (21-32) Anion Gap 9 (6-14) Blood Urea Nitrogen 9 mg/dL (7-20) Creatinine 0.6 mg/dL (0.6-1.0) Estimated GFR (Cockcroft-Gault) 99.7 Glucose Level 74 mg/dL (70-99) Calcium Level 8.2 mg/dL (8.5-10.1) Free Thyroxine 1.20 ng/dL (0.76-1.46) Laboratory Tests Test 07/05/19 13:40 07/05/19 13:50 07/05/19 14:39 07/05/19 15:24 Glucose (Fingerstick) 164 mg/dL (70-99) White Blood Count 6.4 x10^3/uL (4.0-11.0) Red Blood Count 4.48 x10^6/uL (3.50-5.40) Hemoglobin 13.1 g/dL (12.0-15.5) Hematocrit 39.8 % (36.0-47.0) Mean Corpuscular Volume 89 fL (79-100) Mean Corpuscular Hemoglobin 29 pg (25-35) Mean Corpuscular Hemoglobin Concent 33 g/dL (31-37) Red Cell Distribution Width 14.9 % (11.5-14.5) Platelet Count 423 x10^3/uL (140-400) Neutrophils (%) (Auto) 70 % (31-73) Lymphocytes (%) (Auto) 12 % (24-48) Monocytes (%) (Auto) 11 % (0-9) Eosinophils (%) (Auto) 6 % (0-3) Basophils (%) (Auto) 1 % (0-3) Neutrophils # (Auto) 4.5 x10^3/uL (1.8-7.7) Lymphocytes # (Auto) 0.8 x10^3/uL (1.0-4.8) Monocytes # (Auto) 0.7 x10^3/uL (0.0-1.1) Eosinophils # (Auto) 0.4 x10^3/uL (0.0-0.7) Basophils # (Auto) 0.1 x10^3/uL (0.0-0.2) Prothrombin Time 12.3 SEC (11.7-14.0) Prothromb Time International Ratio 0.9 (0.8-1.1) Sodium Level 141 mmol/L (136-145) Potassium Level 4.5 mmol/L (3.5-5.1) Chloride Level 101 mmol/L (98-107) Carbon Dioxide Level 29 mmol/L (21-32) Anion Gap 11 (6-14) Blood Urea Nitrogen 19 mg/dL (7-20) Creatinine 1.1 mg/dL (0.6-1.0) Estimated GFR (Cockcroft-Gault) 49.5 BUN/Creatinine Ratio 17 (6-20) Glucose Level 165 mg/dL (70-99) Calcium Level 9.1 mg/dL (8.5-10.1) Total Bilirubin 0.2 mg/dL (0.2-1.0) Aspartate Amino Transf (AST/SGOT) 28 U/L (15-37) Alanine Aminotransferase (ALT/SGPT) 30 U/L (14-59) Alkaline Phosphatase 137 U/L (46-116) Troponin I Quantitative < 0.017 ng/mL (0.000-0.055) Total Protein 6.9 g/dL (6.4-8.2) Albumin 3.9 g/dL (3.4-5.0) Albumin/Globulin Ratio 1.3 (1.0-1.7) Lipase 228 U/L (73-393) Thyroid Stimulating Hormone (TSH) 1.681 uIU/mL (0.358-3.74) Ethyl Alcohol Level < 10 mg/dL (0-10) O2 Saturation 89 % (92-99) Arterial Blood pH 7.37 (7.35-7.45) Arterial Blood pCO2 at Patient Temp 42 mmHg (35-46) Arterial Blood pO2 at Patient Temp 57 mmHg (65-108) Arterial Blood HCO3 24 mmol/L (21-28) Arterial Blood Base Excess -1 mmol/L (-3-3) Oxyhemoglobin 88.1 % Methemoglobin 0.2 % (0.0-1.9) Carbon Monoxide, Quantitative 0.3 % (0.0-1.9) FiO2 21 Urine Opiates Screen Neg (NEG) Urine Methadone Screen Neg (NEG) Urine Barbiturates Neg (NEG) Urine Phencyclidine Screen Neg (NEG) Urine Amphetamine/Methamphetamine Neg (NEG) Urine Benzodiazepines Screen Neg (NEG) Urine Cocaine Screen Neg (NEG) Urine Cannabinoids Screen Pos (NEG) Urine Ethyl Alcohol Neg (NEG) Urine Collection Type Unknown Urine Color Yellow Urine Clarity Clear Urine pH 7.5 [address] [place] 1.015 Urine Protein 30 mg/dL (NEG-TRACE) Urine Glucose (UA) Negative mg/dL (NEG) Urine Ketones (Stick) Negative mg/dL (NEG) Urine Blood Negative (NEG) Urine Nitrite Negative (NEG) Urine Bilirubin Negative (NEG) Urine Urobilinogen Dipstick 0.2 mg/dL (0.2 mg/dL) Urine Leukocyte Esterase Trace (NEG) Urine RBC 1-2 /HPF (0-2) Urine WBC 11-20 /HPF (0-4) Urine Squamous Epithelial Cells Occ /LPF Urine Transitional Epithelial Cells Few /LPF Urine Amorphous Sediment Present /HPF Urine Bacteria 0 /HPF (0-FEW) Urine Hyaline Casts Many /HPF Urine Mucus Mod /LPF Test 07/05/19 15:47 07/06/19 04:00 Lactic Acid Level 1.8 mmol/L (0.4-2.0) Ammonia < 10 mcmol/L (11-34) White Blood Count 4.9 x10^3/uL (4.0-11.0) Red Blood Count 4.05 x10^6/uL (3.50-5.40) Hemoglobin 11.8 g/dL (12.0-15.5) Hematocrit 35.9 % (36.0-47.0) Mean Corpuscular Volume 89 fL (79-100) Mean Corpuscular Hemoglobin 29 pg (25-35) Mean Corpuscular Hemoglobin Concent 33 g/dL (31-37) Red Cell Distribution Width 15.2 % (11.5-14.5) Platelet Count 333 x10^3/uL (140-400) Neutrophils (%) (Auto) 65 % (31-73) Lymphocytes (%) (Auto) 14 % (24-48) Monocytes (%) (Auto) 11 % (0-9) Eosinophils (%) (Auto) 10 % (0-3) Basophils (%) (Auto) 1 % (0-3) Neutrophils # (Auto) 3.2 x10^3/uL (1.8-7.7) Lymphocytes # (Auto) 0.7 x10^3/uL (1.0-4.8) Monocytes # (Auto) 0.5 x10^3/uL (0.0-1.1) Eosinophils # (Auto) 0.5 x10^3/uL (0.0-0.7) Basophils # (Auto) 0.0 x10^3/uL (0.0-0.2) Sodium Level 143 mmol/L (136-145) Potassium Level 3.7 mmol/L (3.5-5.1) Chloride Level 106 mmol/L (98-107) Carbon Dioxide Level 28 mmol/L (21-32) Anion Gap 9 (6-14) Blood Urea Nitrogen 9 mg/dL (7-20) Creatinine 0.6 mg/dL (0.6-1.0) Estimated GFR (Cockcroft-Gault) 99.7 Glucose Level 74 mg/dL (70-99) Calcium Level 8.2 mg/dL (8.5-10.1) Free Thyroxine 1.20 ng/dL (0.76-1.46) Brief Hospital Course Ms. Suggs is a 69 old 50 pack yrs smoking hx, no etoh, works at [employer], had some confusion there witnessed by co workers, seeing things here on admission that wasnt there? no psych hx, CT brain, CXR and CTA bd neg except for some fibroid uterus, SH eis back to baseline maybe weak, wants to go home before the [employer] game, HOME TODAY PENDING pt nas [place] family and RN at bedside I gave [facility] contact info she can ff up OP dw RN gene Discharge Information Condition at Discharge: Improved, Stable Disposition/Orders: D/C to Home Scheduled Alendronate Sodium (Alendronate Sodium) 70 Mg Tablet, 1 TAB PO WEEKLY for bone, #4 Ref 3 (Reported) Entered as Reported by: THU MITCHELL on 07/05/192031 Last Taken: Unknown Dose on 06/30/19 Last Action: Converted on 07/06/19911 by JANESSA CAMACHO Amlodipine Besylate (Amlodipine Besylate) 5 Mg Tablet, 5 MG PO DAILY for blood pressure, (Reported) Entered as Reported by: THU MITCHELL on 07/05/192031 Last Taken: Unknown Dose on 07/05/19 Last Action: Continued on 07/06/19911 by JANESSA CAMACHO Aspirin (Aspirin) 81 Mg Tab.chew, 1 TAB PO DAILY for antiplatelet, #30 Ref 3 (Reported) Entered as Reported by: THU MITCHELL on 07/05/192031 Last Taken: Unknown Dose on 07/05/19 Last Action: Continued on 07/06/19911 by JANESSA CAMACHO Atorvastatin Calcium (Atorvastatin Calcium) 40 Mg Tablet, 1 TAB PO DAILY for cholesterol, #30 Ref 5 (Reported) Entered as Reported by: THU MITCHELL on 07/05/192031 Last Taken: Unknown Dose on 07/05/19 Last Action: Continued on 07/06/19911 by JANESSA CAMACHO Bupropion Hcl (Bupropion Xl) 300 Mg Tab.er.24h, 1 TAB PO DAILYWBKFT for depression, #30 Ref 2 (Reported) Entered as Reported by: THU MITCHELL on 07/05/192031 Last Taken: Unknown Dose on 07/05/19 Last Action: Converted on 07/06/19911 by JANESSA CAMACHO Ipratropium/Albuterol Sulfate (Combivent Respimat Inhal) 4 Gm Aer.w.adap, 2 INH IH QID for asthma, (Reported) Entered as Reported by: THU MITCHELL on 07/05/192031 Last Taken: Unknown Dose on 07/05/19 Last Action: Converted on 07/06/19911 by JANESSA CAMACHO Levothyroxine Sodium (Levothyroxine Sodium) 75 Mcg Tablet, 1 TAB PO DAILY for thyroid, #30 Ref 5 (Reported) Entered as Reported by: THU MITCHELL on 07/05/192031 Last Taken: Unknown Dose on 07/05/19 Last Action: Continued on 07/05/192032 by THU MITCHELL Pantoprazole Sodium (Protonix ) 40 Mg Tablet.dr, 40 MG PO DAILYAC for GERD, (Reported) Entered as Reported by: THU MITCHELL on 07/05/192031 Last Taken: Unknown Dose on 07/05/19 Last Action: Continued on 07/06/19911 by JANESSA CAMACHO [allergy] , 25 MG PO DAILY for allergy, (Reported) Entered as Reported by: THU MITCHELL on 07/05/192031 Last Taken: Unknown Dose on 07/05/19 Last Action: HELD on 07/06/19911 by JANESSA PANDA MD Jul 06, 2019 11:13
[2019-07-06] MEDS ORDERED: PANTOPRAZOLE 40 MG TABLET.DR. PO SCH (11:30)
[2019-07-06] MEDS ORDERED: IPRATRPIUM/ALBUTEROL 0.5/2.5MG 3 ML NEBU. NEB SCH (12:00)
[2019-07-06] MEDS ORDERED: NON FORMULARY ITEM (Ipratropium/Albuterol Sulfate (Combivent Respimat Inhal) 2 INH) IH SCH (13:00)
--- NOTE | 2019-07-06 13:46 | NUR ---
Discharge Note: [facility] Discharge instructions and discharge home medications reviewed with Family Member and a copy given. All questions have been answered and understanding verbalized. The following instructions and handouts were given: education on weakness, medications, follow up information, worsening symptoms, activity Discontinued lines and drains: IV discontinued, telemetry removed, and skin intact. Patient discharged to home with family memeber via private vehicle
[2019-07-06] MEDS ORDERED: IPRATRPIUM/ALBUTEROL 0.5/2.5MG 3 ML NEBU. ONE (15:10)
[2019-07-06] MEDS ORDERED: ATORVASTATIN CALCIUM 40 MG TABLET. PO SCH (21:00)
[2019-07-07 02:17] LABS: HEMOGLOBIN A1C 5.4 % (4.8-5.6)
[2019-07-13] MEDS ORDERED: NON FORMULARY ITEM (Alendronate Sodium 1 TAB) PO SCH (09:00)
== END 2019-07-06 13:49 | disposition home or self-care (01) ==
LOC: ER 13:21 → 6 SOUTH 16:40
PROVIDERS: ADMIT Internal Medicine; ATTEND Internal Medicine
DX: G93.40 Encephalopathy, unspecified (principal); R41.82 Altered mental status, unspecified; R13.10 Dysphagia, unspecified; I12.9 Hypertensive chronic kidney disease with stage 1 through stage 4 chronic kidney disease, or unspecified chronic kidney disease; N18.3 Chronic kidney disease, stage 3 (moderate); E43 Unspecified severe protein-calorie malnutrition; J44.9 Chronic obstructive pulmonary disease, unspecified; E03.9 Hypothyroidism, unspecified; E78.5 Hyperlipidemia, unspecified; F17.210 Nicotine dependence, cigarettes, uncomplicated; R63.4 Abnormal weight loss; Z68.20 Body mass index [BMI] 20.0-20.9, adult; Z98.891 History of uterine scar from previous surgery
CPT/HCPCS: 36415; 36600; 70450; 71045; 74177; 80048; 80053; 80307; 81001; 82140; 82607; 82805; 82962; 83036; 83605; 83690; 84439; 84443; 84484; 85025; 85610; 87086; 93005; 94640; 96361; 96365; 97161; 99284; G0378; G0480; J0744; J7030; J7620; Q9967; G0379